=== PATIENT | female | born 1965 | race Caucasian/White ===

== ENCOUNTER 2020-03-20 10:23 | Emergency (ER) | payer BC ==
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
[2020-03-20] MEDS ORDERED: Aspirin 81 MG Tab.Chew PO ONE (11:23)
--- NOTE | 2020-03-20 12:58 | CRLCR ---
INDICATION: Chest pain TECHNIQUE: Single view chest. FINDINGS: The lungs are clear. The heart, mediastinum and pulmonary vessels are of normal size. There is no evidence of pleural disease. IMPRESSION: Negative chest. Dictated by Erica Kramer MD @ Mar 20 2020 12:56PM Signed by Dr. Erica Kramer @ Mar 20 2020 12:57PM
== END 2020-03-20 14:55 | disposition home or self-care (01) ==
LOC: JP.ED 10:23
DX: R07.89 Other chest pain (principal); Z88.6 Allergy status to analgesic agent; Z88.5 Allergy status to narcotic agent; E03.9 Hypothyroidism, unspecified; Z79.899 Other long term (current) drug therapy
CPT/HCPCS: 36415; 71045; 80048; 83880; 84484; 85379; 99285; A9270